=== PATIENT | male | born 1995 | race Caucasian/White ===

== ENCOUNTER 2017-04-17 14:17 | Emergency (ER) | payer BC ==
[~2017-04-17] VITALS: Ht 182.9 cm; Wt 80.8 kg
[2017-04-17 14:24] VITALS: Ht 182.9 cm; Wt 80.8 kg
[2017-04-17] MEDS ORDERED: KETOROLAC TROMETHAMINE 60 MG/2 ML VIAL IM STA (16:37)
[2017-04-17] MEDS ORDERED: ONDANSETRON 4MG OD TAB PO STA (16:37)
--- NOTE | 2017-04-17 16:40 | EMERGENCY ROOM VISIT NOTE ---
History Report prepared by Karina: Bartolome Farmer Under the Supervision of: Ilia LowO. First contact with patient: 16:23 Chief Complaint: HEADACHE Stated Complaint: MIGRAINE History of Present Illness The patient is a 22 year old male who presents to the Emergency Room with complaints of a persistent headache that started 6 days ago. He says that he celebrated his 22st birthday a week ago, the day before the headache came on, but he does not think he hit his head that night. The patient states that he got pretty drunk, but was with it the whole night. He notes that he was not hung -over the next day, but around 2000 that night, his head started pounding, and he proceeded to vomit that night with nausea that has persisted. Today, he says that he woke up at 0400 with a pounding headache and he states that his mouth felt "weird". He notes that he feels hot at times when going to sleep. The patient denies any neck pain, fevers, chills, trouble walking, or weakness in his arms and legs. The patient has no noted headache history, and he has not seen a doctor for his headache yet. He does not take any daily medications currently. Source of History: patient Onset: 6 days ago Position: head Quality: other (pounding) Timing: other (persistent) Associated Symptoms: + nausea, + vomiting, No fevers, No chills, No neck pain, No weakness (arms or legs) Note: Associated symptoms: Feels hot at night. Review of Systems See HPI for pertinent positives & negatives. A total of 10 systems reviewed and were otherwise negative. Past Medical & Surgical Medical Problems: (1) No chronic problems Family History No pertinent family history Social History Smoking Status: Never Smoker Alcohol Use: occasionally Marital Status: single Housing Status: lives with roommate Occupation Status: [employer] Current/Historical Medications Scheduled Amoxicillin & Pot Clavulanate (Augmentin 875-125 mg), 875 MG PO BID [Accutane], 80 MG PO DAILY Scheduled PRN Oxycodone Immediate Rel Tab (Roxicodone Ir), 1-2 TAB PO Q4H PRN for Severe Pain Allergies Coded Allergies: No Known Allergies (Unverified , 04/17/17) Physical Exam Vital Signs Date Time Temp Pulse Resp B/P (MAP) Pulse Ox O2 Delivery O2 Flow Rate FiO2 04/17/17 18:07 36.6 91 18 126/78 96 04/17/17 18:06 91 18 126/78 96 Room Air 04/17/17 17:12 92 18 128/78 96 Room Air 04/17/17 14:24 36.6 102 18 144/95 94 Room Air Physical Exam GENERAL: Patient is awake, alert, and in no acute distress. Patient is resting comfortably and showing no signs of anxiety EYES: The conjunctivae are clear. The pupils are round and reactive. EARS, NOSE, MOUTH AND THROAT: The nose is without any evidence of any deformity. Mucous membranes are moist tongue is midline NECK: The neck is nontender and supple. RESPIRATORY: Normal respiratory effort is noted there is no evidence of wheezing rhonchi or rales CARDIOVASCULAR: Regular rate and rhythm noted there no murmurs rubs or gallops normal S1 normal S2 GASTROINTESTINAL: The abdomen is soft. Bowel sounds are present in all quadrants. Abdomen is nontender MUSCULOSKELETAL/EXTREMITIES: There is no evidence of gross deformity full range of motion is noted in the hips and shoulders SKIN: There is no obvious evidence of any rash. There are no petechiae, pallor or cyanosis noted. NEUROLOGIC: Patient is awake alert and oriented x3 strength is symmetric patellar reflexes are 2+ bilaterally Medical Decision & Procedures ER Provider Diagnostic Interpretation: CT results as stated below per my review and radiologist interpretation. CT SCAN OF THE PARANASAL SINUSES CLINICAL HISTORY: Left-sided headache. COMPARISON STUDY: No priors. TECHNIQUE: High-resolution CT scan of the paranasal sinuses is performed. Images are reviewed in the axial, sagittal, and coronal planes. IV contrast was not administered for this examination. A dose lowering technique was utilized adhering to the principles of ALARA. FINDINGS: Maxillary antra: Moderate mucosal thickening is seen in the left maxillary antrum. Trace mucosal thickening is seen on the right. Anterior ethmoid sinuses: There is subtotal opacification of the left anterior ethmoid sinuses. Mild mucosal thickening is seen on the right. Posterior ethmoid sinuses: There is a single opacified right posterior ethmoid sinus. The left posterior ethmoid sinuses are clear. Sphenoid sinuses: Moderate mucosal thickening is seen on the right. Mild to moderate mucosal thickening is seen on the left. Frontal sinuses: Moderate mucosal thickening is seen on the left. Only trace mucosal thickening is seen on the right. Ostiomeatal complexes: Occluded on the left. Patent on the right. Frontoethmoidal and sphenoethmoidal recesses: The right sphenoethmoidal recess is occluded. The left sphenoethmoidal recess is patent, noting mild narrowing secondary to mucosal thickening. The right frontoethmoidal recess is clear. The left frontoethmoidal recess is occluded. Carotid arteries: The carotid arteries are covered and without septal attachments. Ethmoid roofs: There is asymmetric elevation of the left ethmoid roof as compared to the right. Nasal turbinates: Normal in appearance. Nasal septum: There is minimal leftward deviation of the bony nasal septum a small spur. Optic nerves: The optic nerves are covered and protrude inferiorly into the sphenoid sinuses, left greater right. Orbits: The bony orbits are intact. Orbital contents are normal in appearance. Calvarium: The imaged calvarium is normal in appearance Mastoid air cells: Well pneumatized. Brain parenchyma: Partially visualized brain parenchyma is within normal limits. IMPRESSION: Pansinusitis as detailed above. Electronically signed by: Rene Denny M.D. 04/17/2017 5:09 PM Dictated Date/Time: 04/17/2017 4:[address] CT DOSE: HISTORY: Headache. TECHNIQUE: Multiaxial CT images of the head were performed without the use of intravenous contrast. Automated exposure control was utilized for this study. A dose lowering technique was utilized adhering to the principles of ALARA. Comparison: None. Findings: Partial opacification with fluid levels within the left frontal sinus, left ethmoid air cells, and sphenoid sinuses. The mastoid air cells are clear. The calvarium and skull base are intact. The ventricles and sulci are within normal limits. There is no mass, hematoma, midline shift, or acute infarct. Impression: No acute intracranial abnormality. Sinus disease as described above. Electronically signed by: Easton Perez M.D. 04/17/2017 5:03 PM Dictated Date/Time: 04/17/2017 5:00 PM Medications Administered Medications (Trade) Dose Ordered Sig/Jesus Route Start Time Stop Time Status Last Admin Dose Admin Ketorolac Tromethamine (Toradol Inj) 60 mg NOW STAT IM 04/17/17 16:37 04/17/17 16:39 DC 04/17/17 16:44 60 MG Ondansetron HCl (Zofran Odt) 4 mg NOW STAT PO 04/17/17 16:37 04/17/17 16:39 DC 04/17/17 16:44 4 MG ED Course 1634: The patient was evaluated in room A9B. A complete history and physical examination were performed. 163: Ordered Zofran Odt 4 mg PO, Toradol Inj 60 mg IM. 1737: Upon reevaluation, the patient is resting. I discussed the results and treatment plan with him. He verbalized agreement of the treatment plan. He was discharged home. Medical Decision Differential diagnosis: Etiologies such as migraine headache, meningitis, sinusitis, CO exposure, ICH, SAH, infection, tumor, headache, sinus thrombosis, arterial dissection, as well as others were entertained. Nursing notes reviewed. The patient is a 22-year-old male who presented to emergency department with left-sided headache. The patient states that this began approximately 6-7 days ago. He had no focal neurologic deficit. He states that he did go out for his 22st birthday approximately one week ago. He was unsure but did not remember any specific trauma. The patient also complained of sinus congestion. I discussed the patient's radiographic studies with him. At this time I feel his headache is likely secondary to sinusitis. He was started on a course of antibiotics. He was encouraged to follow-up with his family doctor soon as possible return to the emergency department immediately if symptoms change worsen or the need arises. Medication Reconcilliation Current Medication List: was personally reviewed by me No medications on list. Blood Pressure Screening Patient's blood pressure: Elevated blood pressure Blood pressure disposition: Elevated BP felt to be situational Impression Primary Impression: Headache Additional Impression: Sinusitis Scribe Attestation The scribe's documentation has been prepared under my direction and personally reviewed by me in its entirety. I confirm that the note above accurately reflects all work, treatment, procedures, and medical decision making performed by me. Departure Information Dispostion Home / Self-Care Prescriptions Oxycodone Immediate Rel Tab (ROXICODONE IR) 5 Mg Tab 1-2 TAB PO Q4H Y for Severe Pain, #15 TAB Prov: Donny Miranda, DO 04/17/17 Amoxicillin & Pot Clavulanate (Augmentin 875-125 mg) 1 Tab Tab 875 MG PO BID for 7 Days, #14 TAB Prov: Donny Miranda, DO 04/17/17 Referrals No Doctor, Assigned (PCP) Forms HOME CARE DOCUMENTATION FORM, IMPORTANT VISIT INFORMATION Patient Instructions My [facility], Sinusitis Acute Additional Instructions Continue using Motrin and Tylenol as directed for pain. Continue all medications as prescribed. Follow-up with [facility] this week for reevaluation. Return to emergency department immediately if symptoms change worsen or if the need arises. Consider using a nasal spray such as Flonase for decongestion. Problem Qualifiers Primary Impression: Headache Headache type: unspecified Headache chronicity pattern: acute headache Intractability: not intractable Qualified Codes: R51 - Headache Additional Impression: Sinusitis Sinusitis location: unspecified location Chronicity: unspecified Qualified Codes: J32.9 - Chronic sinusitis, unspecified
--- NOTE | 2017-04-17 17:04 | DIAGNOSTIC IMAGING REPORT ---
HEAD CT NONCONTRAST CT DOSE: HISTORY: Headache. TECHNIQUE: Multiaxial CT images of the head were performed without the use of intravenous contrast. Automated exposure control was utilized for this study. A dose lowering technique was utilized adhering to the principles of ALARA. Comparison: None. Findings: Partial opacification with fluid levels within the left frontal sinus, left ethmoid air cells, and sphenoid sinuses. The mastoid air cells are clear. The calvarium and skull base are intact. The ventricles and sulci are within normal limits. There is no mass, hematoma, midline shift, or acute infarct. Impression: No acute intracranial abnormality. Sinus disease as described above. Electronically signed by: Easton Perez M.D. 04/17/2017 5:03 PM Dictated Date/Time: 04/17/2017 5:00 PM
--- NOTE | 2017-04-17 17:10 | DIAGNOSTIC IMAGING REPORT ---
CT SCAN OF THE PARANASAL SINUSES CLINICAL HISTORY: Left-sided headache. COMPARISON STUDY: No priors. TECHNIQUE: High-resolution CT scan of the paranasal sinuses is performed. Images are reviewed in the axial, sagittal, and coronal planes. IV contrast was not administered for this examination. A dose lowering technique was utilized adhering to the principles of ALARA. FINDINGS: Maxillary antra: Moderate mucosal thickening is seen in the left maxillary antrum. Trace mucosal thickening is seen on the right. Anterior ethmoid sinuses: There is subtotal opacification of the left anterior ethmoid sinuses. Mild mucosal thickening is seen on the right. Posterior ethmoid sinuses: There is a single opacified right posterior ethmoid sinus. The left posterior ethmoid sinuses are clear. Sphenoid sinuses: Moderate mucosal thickening is seen on the right. Mild to moderate mucosal thickening is seen on the left. Frontal sinuses: Moderate mucosal thickening is seen on the left. Only trace mucosal thickening is seen on the right. Ostiomeatal complexes: Occluded on the left. Patent on the right. Frontoethmoidal and sphenoethmoidal recesses: The right sphenoethmoidal recess is occluded. The left sphenoethmoidal recess is patent, noting mild narrowing secondary to mucosal thickening. The right frontoethmoidal recess is clear. The left frontoethmoidal recess is occluded. Carotid arteries: The carotid arteries are covered and without septal attachments. Ethmoid roofs: There is asymmetric elevation of the left ethmoid roof as compared to the right. Nasal turbinates: Normal in appearance. Nasal septum: There is minimal leftward deviation of the bony nasal septum a small spur. Optic nerves: The optic nerves are covered and protrude inferiorly into the sphenoid sinuses, left greater right. Orbits: The bony orbits are intact. Orbital contents are normal in appearance. Calvarium: The imaged calvarium is normal in appearance Mastoid air cells: Well pneumatized. Brain parenchyma: Partially visualized brain parenchyma is within normal limits. IMPRESSION: Pansinusitis as detailed above. Electronically signed by: Rene Denny M.D. 04/17/2017 5:09 PM Dictated Date/Time: 04/17/2017 4:57 PM
[2017-04-17] MEDS ORDERED: ACCUTANE PO (17:28)
[2017-04-17] MEDS ORDERED: AMOX875T PO (17:31)
[2017-04-17] MEDS ORDERED: OXYC1TAB3 PO (17:35)
[2017-04-17 18:07] VITALS: BP 126/78; PULSE 91; TEMP 36.6; O2SAT 96
== END 2017-04-17 18:07 | disposition home or self-care (01) ==
LOC: C.EDB 14:19 → C.EDA 18:07
DX: R51 Headache (principal); J32.9 Chronic sinusitis, unspecified